=== PATIENT | male | born 1985 | race Caucasian/White ===

== ENCOUNTER → 2023-05-27 11:17 | Outpatient (BNVA) | payer BC, SELFPAY | PROVIDERS: Family Provider Family Medicine; Visit Provider Emergency Medicine | DX: B34.9 Viral infection, unspecified (principal); R11.0 Nausea; J11.1 Influenza due to unidentified influenza virus with other respiratory manifestations | CPT/HCPCS: 87400; 87426 ==

== ENCOUNTER → 2023-12-28 09:51 | Outpatient (BNVA) | payer BC, SELFPAY | PROVIDERS: Family Provider Family Medicine; PCP Family Medicine; Visit Provider Family Medicine | DX: Z13.1 Encounter for screening for diabetes mellitus (principal); Z13.6 Encounter for screening for cardiovascular disorders | CPT/HCPCS: 80053; 80061 ==

== ENCOUNTER → 2024-07-05 10:34 | Outpatient (BNVA) | payer BC, SELFPAY | PROVIDERS: Family Provider Family Medicine; PCP Family Medicine; Visit Provider Nurse Practitioner | DX: N39.0 Urinary tract infection, site not specified (principal) | CPT/HCPCS: 87086 ==

== ENCOUNTER → 2024-07-19 09:25 | Outpatient (BNVA) | payer BC, SELFPAY | PROVIDERS: Family Provider Family Medicine; PCP Family Medicine; Visit Provider Family Medicine | DX: R10.9 Unspecified abdominal pain (principal); Z11.3 Encounter for screening for infections with a predominantly sexual mode of transmission; N23 Unspecified renal colic | CPT/HCPCS: 80053; 81000; 83690; 85025; 86705; 86706; 86709; 86803; 87086; 87340; 87491; 87591; 87661; 87806 ==

== ENCOUNTER 2024-08-01 15:13 | Outpatient (CLI) | payer BC, SELFPAY ==
--- NOTE | 2024-08-01 16:15 | CTR_ITS ---
PROCEDURE INFORMATION: Exam: CT Abdomen And Pelvis Without Contrast Exam date and time: 08/01/2024 3:44 PM Age: 38 years old Clinical indication: Abdominal pain; Lower; Bilateral flank pain but worse on right flank x 1 year. Burning sensation when urinating, pressure and pain when lying on back. ; Additional info: N23 - unspecified renal colic TECHNIQUE: Imaging protocol: Computed tomography of the abdomen and pelvis without contrast. Radiation optimization: All CT scans at this facility use at least one of these dose optimization techniques: automated exposure control; mA and/or kV adjustment per patient size (includes targeted exams where dose is matched to clinical indication); or iterative reconstruction. COMPARISON: No relevant prior studies available. RADIATION DOSE METRICS: Total DLP (mGy-cm): 243.01 FINDINGS: Liver: Normal. No mass. Gallbladder and biliary ducts: Normal. No calcified stones. No ductal dilation. Pancreas: Normal. No ductal dilation. Spleen: Normal. No splenomegaly. Adrenal glands: Normal. No mass. Kidneys and ureters: 10 mm right renal cyst. Stomach and bowel: Moderate colonic stool burden suggests constipation. Appendix: No evidence of appendicitis. Intraperitoneal space: Unremarkable. No free air. No significant fluid collection. Vasculature: Unremarkable. No abdominal aortic aneurysm. Lymph nodes: Unremarkable. No enlarged lymph nodes. Urinary bladder: Unremarkable as visualized. Reproductive: Unremarkable as visualized. Bones/joints: Unremarkable. No acute fracture. Soft tissues: Unremarkable. CT/CT kidney stone [id number] IMPRESSION: 1. Probable constipation. 2. No evidence of urolithiasis, obstructive uropathy, or other acute abdominal or pelvic process. COMMENTS: Consistent with the [employer]'s Incidental Findings Committee white paper (J Am Jessica Radiol 2018): Any incidental renal lesion less than 1 cm or classified as too small to characterize, or any incidental cystic renal lesion characterized as simple-appearing, is likely benign. No follow-up imaging is recommended for these lesions per consensus recommendations based on imaging criteria.
== END 2024-08-01 15:14 | disposition home or self-care (01) ==
PROVIDERS: PCP Family Medicine; Visit Provider Family Medicine
DX: N23 Unspecified renal colic (principal); N28.1 Cyst of kidney, acquired; R93.89 Abnormal findings on diagnostic imaging of other specified body structures
CPT/HCPCS: 74176

== ENCOUNTER → 2025-03-06 13:54 | Outpatient (BNVA) | payer BC, SELFPAY | PROVIDERS: PCP Family Medicine; Referring Provider Family Medicine; Visit Provider Internal Medicine Cardiovascular Disease | DX: R00.2 Palpitations (principal); R07.9 Chest pain, unspecified; R94.31 Abnormal electrocardiogram [ECG] [EKG] | CPT/HCPCS: 36415; 83835; 84439; 84443; 93005 ==

== ENCOUNTER 2025-03-13 06:01 | Outpatient (CLI) | payer BC, SELFPAY ==
--- NOTE | 2025-03-13 06:15 | USCV_ITS ---
Hermann Anton Age: 39 Gender: M : 1985 Exam Date: 03/13/2025 06:26 Ordering Phys: Marina VillegasP [employer] Technologist: Exam Location: [facility] [place] Indication: sob wieght loss BP: 130 / 70 HR: 66 Rhythm: Sinus Technical Quality: Adequate MEASUREMENTS (Male / Female) Normal Values 2D ECHO LV Diastolic Diameter PLAX 4.3 cm 4.2 - 5.9 / 3.9 - 5.3 cm IVS Diastolic Thickness 1.0 cm 0.6 - 1.0 / 0.6 - 0.9 cm IVS Systolic Thickness 1.4 cm LVPW Diastolic Thickness 1.2 cm 0.6 - 1.0 / 0.6 - 0.9 cm LVPW Systolic Thickness 1.6 cm LVOT Diameter 2.0 cm LV Ejection Fraction 2D Teich 63.0 % LV Ejection Fraction MOD 4C 52.2 % LV Ejection Fraction MOD 2C 65.0 % LV Ejection Fraction 2C AL 64.9 % LA Diameter 2.3 cm RA Systolic Volume 4C AL 40.5 ml RA Systolic Volume 4C MOD 38.6 ml LA Sys Volume AL 48.5 cm cubed LA Sys Volume Index AL 26.2 cm cubed/m squared Aorta at Sinotubular Diameter 2.8 cm IVC Diameter 1.5 cm M-MODE LA Ao Ratio MM 1.0 AV Cusp Separation MM 2.4 cm DOPPLER AV Peak Velocity 126.0 cm/s LVOT Peak Velocity 102.0 cm/s AV Area Cont Eq vti 3.4 cm squared AV Area Cont Eq pk 2.6 cm squared MV Area PHT 3.4 cm squared TR Peak Velocity 232.0 cm/s TR Peak Gradient 21.5 mmHg TV Peak E Velocity 92.0 cm/s PV Peak Velocity 107.0 cm/s FINDINGS Left Ventricle Normal left ventricular size and systolic function, EF 60-65%. No regional wall motion abnormalities. Right Ventricle Normal in size and function Right Atrium Normal in size Left Atrium Normal in size IA Septum Grossly normal Mitral Valve Structurally normal mitral valve. Trace mitral regurgitation. Aortic Valve Structurally normal aortic valve. No significant stenosis or regurgitation. Tricuspid Valve Insufficient TR jet to evaluate RVSP Pulmonic Valve Not well visualized Pericardium Normal Aorta Normal in size IVC Appears to be normal CONCLUSIONS LV systolic function is normal with EF of 60-65% Trace mitral regurgitation. Heriberto Benjamin MD (Electronically Signed) Final Date: 16 March 2025 13:24 S
== END 2025-03-13 06:02 | disposition home or self-care (01) ==
LOC: RAD 06:02
PROVIDERS: PCP Family Medicine; Visit Provider Nurse Practitioner
DX: R00.2 Palpitations (principal); I34.0 Nonrheumatic mitral (valve) insufficiency
CPT/HCPCS: 93306

== ENCOUNTER → 2025-03-18 15:29 | Outpatient (BNVA) | payer BC, SELFPAY | PROVIDERS: PCP Family Medicine; Visit Provider Family Medicine | DX: E03.9 Hypothyroidism, unspecified (principal); E05.90 Thyrotoxicosis, unspecified without thyrotoxic crisis or storm; R73.9 Hyperglycemia, unspecified | CPT/HCPCS: 80053; 83036; 83516; 84439; 84443; 84481; 85025; 86376 ==

== ENCOUNTER 2025-03-20 12:33 | Outpatient (CLI) | payer BC, SELFPAY ==
--- NOTE | 2025-03-20 13:00 | USR_ITS ---
PROCEDURE INFORMATION: Exam: US Soft Tissue Head and Neck, Thyroid Exam date and time: 03/20/2025 12:53 PM Age: 39 years old Clinical indication: Condition or disease; Thyroid disorder; Thyrotoxycosis or graves' disease; Type not specified; With crisis or storm; Additional info: E05.90 - thyrotoxicosis, unspecified without thyrotoxic c. . . TECHNIQUE: Imaging protocol: Real-time ultrasound scan of the neck with image documentation. Exam focused on the thyroid. COMPARISON: No relevant prior studies available. FINDINGS: Right thyroid lobe: Right thyroid lobe measures 4.2 x 1.3 x 1.4 cm. There are no solid or cystic lesions. Left thyroid lobe: Left thyroid lobe measures 4.7 x 0.9 x 1.1 cm. There are no solid or cystic lesions. Isthmus: No nodules. Isthmus measures 0.3 cm. Lymph nodes: There are lymph nodes in the left cervical chain measuring up to 0.9 cm in short axis diameter. These are most likely benign in etiology. US/US thyroid [id number] IMPRESSION: 1. No evidence for thyroid nodule. 2. Small left cervical chain lymph nodes measuring up to 0.9 cm, most likely benign in etiology.
== END 2025-03-20 12:34 | disposition home or self-care (01) ==
LOC: RAD 12:34
PROVIDERS: PCP Family Medicine; Visit Provider Family Medicine
DX: E05.90 Thyrotoxicosis, unspecified without thyrotoxic crisis or storm (principal); R59.0 Localized enlarged lymph nodes
CPT/HCPCS: 76536